=== PATIENT | female | born 1970 | race Caucasian/White ===

== ENCOUNTER 2021-09-26 10:11 | Outpatient (CLI) | payer OTHER, SELFPAY ==
[2021-09-26 13:45] LABS: C Reactive Protein* < 0.5 mg/dL (0.5-1.0)
== END 2021-09-26 10:12 | disposition home or self-care (01) ==
LOC: LKVREF 10:14
PROVIDERS: PCP Emergency Medicine; Visit Provider Emergency Medicine
DX: Z00.00 Encounter for general adult medical examination without abnormal findings (principal); R10.9 Unspecified abdominal pain
CPT/HCPCS: 86140

== ENCOUNTER 2022-01-20 10:09 | Outpatient (CLI) | payer OTHER, SELFPAY ==
--- NOTE | 2022-01-20 10:15 | MR_ITS ---
[address] [address] Phone:?[phone] Fax:?[phone] Referring Physician Information: Ysabel Savage M.D. [id number] [address] Phone:?[phone] Fax:?[phone] Patient:ABE HERNANDEZ D.O.B:?1970 Sex:?Female Phone:?[phone] [facility] MRN:?[id number] Exam Date:?01/20/2022 ? EXAM: MRI OF THE THORACIC SPINE WITHOUT CONTRAST CLINICAL INFORMATION: 51-year-old woman with back pain. TECHNICAL INFORMATION: MRI of the thoracic spine was obtained on 1.5 Lisy magnet including sagittal T2, T1, and STIR images. Axial T2 and gradient echo images. INTERPRETATION: There is focal kyphosis at C5-6 with anterior wedging of the C5 and C6 vertebral bodies. Severe degenerative disc disease and disc bulge at C5-6 and C6-7 with mild ventral cord flattening at each of these levels. There is normal alignment of the thoracic spine in the sagittal plane. No marrow edema within the thoracic vertebral bodies. No loss of vertebral body height. Small hemangiomas at T8 and T10. No abnormal T2 signal within the thoracic spinal cord. C7-T1 through T9-10: No annular bulge. No cord deformity or central spinal canal stenosis. The foramen appear patent. T10-11: 1 mm left posterior lateral disc protrusion. No cord deformity or central spinal canal stenosis. The foramen are patent. T11-12: No cord deformity or central spinal canal stenosis. The foramen are patent. T12-L1: Disc bulge with 2 mm cranially extruded disc herniation which indents the dural sac without cord deformity or central spinal canal stenosis. The foramen are patent. CONCLUSION: 1. T12-L1 2 mm cranially extruded disc herniation which indents the dural sac without cord deformity or central spinal canal stenosis. 2. T10-11 1 mm left posterior lateral disc protrusion without cord deformity or central spinal canal stenosis. 3. Severe degenerative disc disease with disc bulge and mild ventral cord flattening at C5-6 and C6-7. LPB Electronically signed on 01/21/2022 5:26:00 PM by Basil Infante M.D.
== END 2022-01-20 10:10 | disposition home or self-care (01) ==
LOC: MRI 10:10
PROVIDERS: PCP Emergency Medicine; Visit Provider Emergency Medicine
DX: M54.9 Dorsalgia, unspecified (principal); M51.25 Other intervertebral disc displacement, thoracolumbar region; M51.24 Other intervertebral disc displacement, thoracic region; M50.322 Other cervical disc degeneration at C5-C6 level; M50.323 Other cervical disc degeneration at C6-C7 level
CPT/HCPCS: 72146

== ENCOUNTER 2024-04-12 08:43 | Outpatient (CLI) | payer OTHER, SELFPAY | END 2024-04-12 08:44 | disposition home or self-care (01) | PROVIDERS: PCP Emergency Medicine; Visit Provider Emergency Medicine | DX: Z13.1 Encounter for screening for diabetes mellitus (principal); Z13.6 Encounter for screening for cardiovascular disorders | CPT/HCPCS: 80061; 82947 ==

== ENCOUNTER 2024-04-14 09:24 | Outpatient (CLI) | payer OTHER, SELFPAY ==
--- NOTE | 2024-04-14 10:32 | P.ANES_ITS ---
Anesthesia Charges Start Date/Time Anesthesia Start Date: 04/14/24 Anesthesia Start Time: 09:56 Stop Date/Time Anesthesia Stop Date: 04/14/24 Anesthesia Stop Time: 10:31 Coding CPT Codes CPT Codes: CIRO LWR INTST SCR COLSC - 15470 ([id number]) P1 - NORMAL HEALTHY PATIENT, QK - MERCHANDISE COLLECTOR 2-4 CNCRNT ANES PROC, QX - SPORTS MEDICINE SPECIALIST SVC W/ MED DIRECTION
--- NOTE | 2024-04-14 10:32 | W.ANESCHARGE ---
Anesthesia Charges Start Date/Time Anesthesia Start Date: 04/14/24 Anesthesia Start Time: 09:56 Stop Date/Time Anesthesia Stop Date: 04/14/24 Anesthesia Stop Time: 10:31 Coding CPT Codes CPT Codes: CIRO LWR INTST SCR COLSC - 26082 ([id number]) P1 - NORMAL HEALTHY PATIENT, QK - FINISHING TRIMMER 2-4 CNCRNT ANES PROC, QX - MANAGER OF IT SVC W/ MED DIRECTION
--- NOTE | 2024-04-14 10:35 | P.ANES_ITS ---
Anesthesia Charges Start Date/Time Anesthesia Start Date: 04/14/24 Anesthesia Start Time: 09:56 Stop Date/Time Anesthesia Stop Date: 04/14/24 Anesthesia Stop Time: 10:31 Coding CPT Codes CPT Codes: CIRO LWR INTST SCR COLSC - 40866 ([id number]) P1 - NORMAL HEALTHY PATIENT, QK - MANAGEMENT PSYCHOLOGIST 2-4 CNCRNT ANES PROC, QX - BUSINESS ADMINISTRATION PROGRAM CHAIR SVC W/ MED DIRECTION
--- NOTE | 2024-04-14 10:35 | W.ANESCHARGE ---
Anesthesia Charges Start Date/Time Anesthesia Start Date: 04/14/24 Anesthesia Start Time: 09:56 Stop Date/Time Anesthesia Stop Date: 04/14/24 Anesthesia Stop Time: 10:31 Coding CPT Codes CPT Codes: CIRO LWR INTST SCR COLSC - 32715 ([id number]) P1 - NORMAL HEALTHY PATIENT, QK - COMMUNITY RELATIONS DIRECTOR 2-4 CNCRNT ANES PROC, QX - FISH HATCHERY ASSISTANT SVC W/ MED DIRECTION
== END 2024-04-14 09:25 | disposition home or self-care (01) ==
LOC: OP CLINIC 09:24
PROVIDERS: PCP Emergency Medicine; Visit Provider Surgery
DX: Z12.11 Encounter for screening for malignant neoplasm of colon (principal)
CPT/HCPCS: 00812; 45378; J2704